=== PATIENT | male | born 1955 | race Caucasian/White ===

== ENCOUNTER 2018-12-20 18:22 | Emergency (ER) | payer BC ==
[~2018-12-20] VITALS: Ht 162.6 cm; Wt 70.0 kg
[2018-12-20 21:25] VITALS: BP 126/85
== END 2018-12-20 21:25 | disposition home or self-care (01) ==
LOC: ER 18:22
DX: R04.0 Epistaxis (principal); E11.9 Type 2 diabetes mellitus without complications; I10 Essential (primary) hypertension; Z98.890 Other specified postprocedural states
CPT/HCPCS: 82962; 99281; 99282

== ENCOUNTER 2018-12-23 18:08 | Emergency (ER) | payer BC ==
[~2018-12-23] VITALS: Ht 167.6 cm; Wt 73.0 kg
[2018-12-23 22:20] VITALS: BP 132/72
== END 2018-12-23 22:20 | disposition home or self-care (01) ==
LOC: ER 18:08
DX: R04.0 Epistaxis (principal); I10 Essential (primary) hypertension
CPT/HCPCS: 99282